=== PATIENT | female | born 1960 | race Caucasian/White ===

== ENCOUNTER 2017-09-09 16:38 | Emergency (ER) | payer BC ==
[~2017-09-09] VITALS: Ht 165.1 cm; Wt 88.8 kg
[~2017-09-09 16:38] MED LIST: NOHOMEMEDS
[2017-09-09 18:09] VITALS: BP 142/88
== END 2017-09-09 18:10 | disposition home or self-care (01) ==
LOC: EME 16:38
PROC: 3E0T3BZ Introduction of Anesthetic Agent into Peripheral Nerves and Plexi, Percutaneous Approach (ICD-10-PCS; principal; 2017-09-09)
DX: S61.042A Puncture wound with foreign body of left thumb without damage to nail, initial encounter (principal); W26.8XXA Contact with other sharp object(s), not elsewhere classified, initial encounter; W45.8XXA Other foreign body or object entering through skin, initial encounter; W22.8XXA Striking against or struck by other objects, initial encounter
CPT/HCPCS: 73140; 99281; 99283

== ENCOUNTER 2018-03-17 06:11 | Emergency (ER) | payer BC ==
[~2018-03-17] VITALS: Ht 162.6 cm; Wt 83.9 kg
[2018-03-17 08:08] LABS: APPEARANCE CLOUDY ((CLEAR)); BILIRUBIN NEGATIVE; BLOOD LARGE; GLUCOSE (STRIP) NEGATIVE; KETONES NEGATIVE; LEUKOCYTES LARGE; NITRITE NEGATIVE; PROTEIN (STRIP) 30; SPECIFIC GRAVITY 1.009 (1.000-1.030); UROBILINOGEN 0.2 MG/DL (0.2-1.0)
[2018-03-17 08:10] LABS: COLOR LT YELLOW ((YELLOW))
[2018-03-17 08:47] LABS: EPITHELIAL CELLS RARE /HPF; MUCUS RARE /LPF; RED BLOOD CELLS TNTC /HPF (0-5); WHITE BLOOD CELLS TNTC /HPF (0-5)
[2018-03-17 08:48] LABS: BACTERIA 1+ /HPF; UCUL ADDED? YES
[2018-03-17] MEDS ORDERED: BACTRIM,SEPT1 TABLET PO (10:06)
[2018-03-17] MEDS ORDERED: PYRIDIUM100 MG PO (10:07)
[2018-03-17 10:45] VITALS: BP 146/105
== END 2018-03-17 10:56 | disposition home or self-care (01) ==
LOC: EME 06:11
PROVIDERS: Emergency Medicine
DX: N39.0 Urinary tract infection, site not specified (principal); Z88.1 Allergy status to other antibiotic agents
CPT/HCPCS: 81003; 87086; 99281; 99283